=== PATIENT | male | born 1965 | race Caucasian/White ===

== ENCOUNTER 2023-05-17 06:17 | Emergency (ER) | payer SELFPAY ==
[~2023-05-17] VITALS: Ht 162.6 cm; Wt 72.0 kg
[2023-05-17] MEDS ORDERED: LISINOPRIL20 M1 PO (07:12)
[2023-05-17] MEDS ORDERED: AMLODIPINE BES2.5 MG PO (07:12)
[2023-05-17] MEDS ORDERED: ABILIFY10 MG PO (07:13)
[2023-05-17] MEDS ORDERED: OMNI-PAC300 MG PO (07:40)
[2023-05-17 09:32] VITALS: BP 177/99
[2023-05-17] MEDS ORDERED: MOTRIN800 MG PO ×2 (11:33→11:38)
== END 2023-05-17 09:32 | disposition home or self-care (01) | DRG 605 ==
LOC: ED 06:17
PROC: 0HQKXZZ Repair Right Lower Leg Skin, External Approach (ICD-10-PCS; principal; 2023-05-17)
DX: S81.811A Laceration without foreign body, right lower leg, initial encounter (principal); M54.6 Pain in thoracic spine; I10 Essential (primary) hypertension; V18.0XXA Pedal cycle driver injured in noncollision transport accident in nontraffic accident, initial encounter; Y93.55 Activity, bike riding; Y92.410 Unspecified street and highway as the place of occurrence of the external cause

== ENCOUNTER 2023-09-14 14:59 | Emergency (ER) | payer SELFPAY ==
[~2023-09-14] VITALS: Ht 162.6 cm; Wt 72.5 kg
[~2023-09-14 14:59] MED LIST: ABILIFY10 MG PO; AMLODIPINE BES2.5 MG PO; LISINOPRIL20 M1 PO; MOTRIN800 MG PO; OMNI-PAC300 MG PO
[2023-09-14 15:45] VITALS: BP 179/120
[2023-09-14 16:00] VITALS: BP 188/119
[2023-09-14 16:13] VITALS: BP 198/129
[2023-09-14 16:15] VITALS: BP 187/125
[2023-09-14 16:30] VITALS: BP 194/121
[2023-09-14] MEDS ORDERED: NAPROXEN500 MG PO (17:48)
[2023-09-14] MEDS ORDERED: METHOCARBAMOL500 MG PO (17:48)
[2023-09-14 17:59] VITALS: BP 194/121
[2023-09-14] MEDS ORDERED: AMLODIPINE BESYL5 MG PO (18:01)
== END 2023-09-14 18:07 | disposition home or self-care (01) | DRG 605 ==
LOC: ED 14:59
DX: S80.11XA Contusion of right lower leg, initial encounter (principal); I10 Essential (primary) hypertension; W13.3XXA Fall through floor, initial encounter; Y93.89 Activity, other specified; Y92.89 Other specified places as the place of occurrence of the external cause; Y99.0 Civilian activity done for income or pay

== ENCOUNTER 2023-09-21 11:37 | Emergency (ER) | payer OTHER ==
[~2023-09-21] VITALS: Ht 162.6 cm; Wt 72.5 kg
[~2023-09-21 11:37] MED LIST changes: +AMLODIPINE BESYL5 MG PO; +METHOCARBAMOL500 MG PO; +NAPROXEN500 MG PO
[2023-09-21 13:36] LABS: BASO% 0.6 % (0-3); EOS% 2.6 % (0-8); HEMATOCRIT 42.9 % (39.0-50.0); HEMOGLOBIN 13.9 g/dl (14.0-18.0); IMMATURE GRANULOCYTES 0.8 % (0.0-5.0); LYMPH% 22.1 % (15-41); MEAN CELL VOLUME 100.5 fL CALC (80.0-100.0); MEAN CORPUSCULAR HGB 32.6 pG CALC (26.0-32.0); MEAN CORPUSCULAR HGB CONC 32.4 g/dL CAL (32.0-36.0); MONO% 7.4 % (2-13); NEUT# 3.31 thou/uL (1.82-7.42); NEUT% 66.5 % (42-76); RED BLOOD COUNT 4.27 mill/uL (4.70-6.10); RED CELL DISTRI WIDTH 11.7 % (11.5-15.5)
[2023-09-21 13:52] LABS: ALBUMIN 4.4 g/dL (3.2-5.0); ALKALINE PHOSPHATASE 70 u/l (38-126); ANION GAP 8 (6-22 (CALC)); BILIRUBIN, TOTAL 0.6 mg/dL (0.2-1.3); BUN 16 mg/dL (9-20); BUN/CREATININE RATIO 12 (12-20 (CALC)); CARBON DIOXIDE 32 mmol/l (22-30); CHLORIDE 104 mmol/l (95-108); CREATININE 1.3 mg/dL (0.7-1.3); GFR FOR AFR.AMER. > 60 ML/MIN (>=60 (CALC)); GFR OTHER RACES 57 ML/MIN (>=60 (CALC)); POTASSIUM 4.2 mmol/l (3.5-5.1); SGOT/AST 34 u/l (17-59); SODIUM 140 mmol/l (137-146); TOTAL PROTEIN 7.3 g/dL (6.3-8.2)
[2023-09-21] MEDS ORDERED: TRAMADOL HYDROC50 M1 PO (15:20)
[2023-09-21] MEDS ORDERED: BACTRIM DS1 TAB PO (15:37)
[2023-09-21] MEDS ORDERED: KEFLEX500 MG PO (15:37)
[2023-09-21 16:04] VITALS: BP 153/87
== END 2023-09-21 16:04 | disposition home or self-care (01) | DRG 556 ==
LOC: ED 11:37
PROVIDERS: Nurse Practitioner
DX: M79.661 Pain in right lower leg (principal); I10 Essential (primary) hypertension; W13.3XXD Fall through floor, subsequent encounter; Z94.5 Skin transplant status
CPT/HCPCS: Q9967

== ENCOUNTER → 2024-04-07 | Emergency (ER) | payer OTHER ==
[~2024-04-07] MED LIST changes: +ATROPINE SUL1 % OS; +BACTRIM DS1 TAB PO; +KEFLEX500 MG PO; +OFLOXACIN0.3 % OS; +TRAMADOL HYDROC50 M1 PO
== END | disposition home or self-care (01) | DRG 951 ==
LOC: LWOBS 14:47
DX: Z53.21 Procedure and treatment not carried out due to patient leaving prior to being seen by health care provider (principal)

== ENCOUNTER 2024-11-04 09:37 | Emergency (ER) | payer OTHER ==
[~2024-11-04] VITALS: Ht 162.6 cm; Wt 64.0 kg
[2024-11-04] MEDS ORDERED: LIDOcaine HCl 1% (Local Anesth.) 20 ML VIAL STI STA (09:42)
[2024-11-04 09:43] VITALS: BP 123/85
[2024-11-04 09:45] VITALS: BP 130/82
[2024-11-04] MEDS ORDERED: Diph, Acellular Pertussis, Tet 0.5 ML/VIAL (Tdap) SDV IM ONE (09:45)
[2024-11-04] MEDS ORDERED: POVIDONE IODINE 0.5 OZ/BTL TOP ONE (09:45)
[2024-11-04] MEDS ORDERED: CEPHALEXIN500 M1 PO (10:00)
[2024-11-04 10:18] VITALS: BP 130/82
== END 2024-11-04 10:20 | disposition home or self-care (01) | DRG 605 ==
LOC: ED 09:37
PROC: 0HQGXZZ Repair Left Hand Skin, External Approach (ICD-10-PCS; principal; 2024-11-04)
DX: S61.211A Laceration without foreign body of left index finger without damage to nail, initial encounter (principal); I10 Essential (primary) hypertension; W26.0XXA Contact with knife, initial encounter; Y92.009 Unspecified place in unspecified non-institutional (private) residence as the place of occurrence of the external cause

== ENCOUNTER 2024-11-11 07:40 | Emergency (ER) | payer OTHER ==
[~2024-11-11] VITALS: Ht 162.6 cm; Wt 72.6 kg
[~2024-11-11 07:40] MED LIST changes: +CEPHALEXIN500 M1 PO
[2024-11-11 07:46] VITALS: BP 146/90
[2024-11-11 08:01] VITALS: BP 124/91
== END 2024-11-11 08:07 | disposition home or self-care (01) | DRG 950 ==
LOC: ED 07:40
DX: S61.211D Laceration without foreign body of left index finger without damage to nail, subsequent encounter (principal); X58.XXXD Exposure to other specified factors, subsequent encounter; I10 Essential (primary) hypertension